=== PATIENT | male | born 1950 | race Caucasian/White ===

== ENCOUNTER 2019-10-30 15:15 | Emergency (ER) | payer OTHER, MEDICAID ==
[~2019-10-30] VITALS: Ht 167.6 cm; Wt 59.0 kg
[~2019-10-30 15:15] MED LIST: ACYCLOVIR400 MG ORAL; ASPIR-LOW81 MG ORAL; BACTRIM-DS1 EA ORAL; HYDROCODON-ACE1 EA18 PO; LORAZEPAM0.5 MG ORAL; METOPROLOL TART25 MG ORAL; NITROGLYCERIN0.4 MG SL; NORVIR100 MG ORAL; REYATAZ150 MG ORAL; VENLAFAXINE HCL25 MG ORAL
[2019-10-30 15:35] VITALS: BP 105/69
[2019-10-30] MEDS ORDERED: traMADol 50mg tab ORAL ONE (15:45)
--- NOTE | 2019-10-30 15:49 | Emergency Room Report ---
History of Present Illness General Chief Complaint: Back Pain-No Injury Source: Patient Present Illness HPI Patient is a 69-year-old male past medical history of HIV who presents to the ER status post fall. Patient states that he fell several days ago in his shower on soapy floor. He states that he hit his face but did not have loss of consciousness. He also states that he hit his right ribs and his buttocks. Patient complains of lower back pain and right-sided rib pain. He denies any headache. He denies any focal weakness. Patient states that he is able to ambulate. He states that he has not taken any medications for his pain. Allergies: Coded Allergies: ARIPIPRAZOLE (Verified Allergy, Unknown, 10/30/19) PROCHLORPERAZINE (Verified Allergy, Unknown, 03/29/10) COVID-19 Screening Contact w/high risk pt: No Recent Travel to affected area: No Experienced COVID-19 symptoms?: No COVID-19 Testing performed TECHNICAL SUPPORT REPRESENTATIVE: No Patient History Past Medical History: other - HIV Past Surgical History: none Social History: Denies: smoking, alcohol use, drug use Nursing Documentation-H Hx Cardiac Problems: Yes - HIV Hx Hypertension: Yes Hx Asthma: Yes Hx COPD: Yes Hx Diabetes: No Hx Cancer: No Hx Gastrointestinal Problems: No Hx Dialysis: No Hx Neurological Problems: No Hx Cerebrovascular Accident: No Hx Seizures: No Review of Systems All Other Systems: negative except mentioned in HPI Physical Exam Vital Signs Date Time Temp Pulse Resp B/P (MAP) Pulse Ox O2 Delivery O2 Flow Rate FiO2 10/30/19 15:21 98.6 65 19 105/69 (81) 95 Room Air Sp02 EP Interpretation: reviewed, normal General Appearance: no apparent distress, alert, GCS 15, non-toxic Head: normocephalic, atraumatic Eyes: left eye normal inspection, left eye PERRL ENT: other - R periorbital ecchymosis, healing abrasion to R nasal bridge Neck: full range of motion, supple/symm/no masses Respiratory: lungs clear, normal breath sounds, speaking full sentences, other - R lateral and posterior rib ttp, no guarding or rebound, no crepitus Cardiovascular #1: regular rate, rhythm, no edema Gastrointestinal: normal bowel sounds, non tender, soft, non-distended, no guarding, no rebound Rectal: deferred Genitourinary: no CVA tenderness Musculoskeletal: other - Lumbar ttp, no stepoffs, no saddle anesthesia Neurologic: alert, motor strength/tone normal, oriented x3, sensory intact, responsive, speech normal, other - normal gait Psychiatric: judgement/insight normal, memory normal, mood/affect normal, no suicidal/homicidal ideation Skin: no rash Lymphatic: no adenopathy Medical Decision Making Diagnostic Impression: Primary Impression: Fall ER Course Patient eloped prior to his CT results. Last Vital Signs Date Time Temp Pulse Resp B/P (MAP) Pulse Ox O2 Delivery O2 Flow Rate FiO2 10/30/19 15:21 98.6 65 19 105/69 (81) 95 Room Air Disposition: ELOPED Condition: Unknown Sarah Rizzo M.D. October 30, 2019 15:49
--- NOTE | 2019-10-30 16:07 | NUR ---
ED Nurse Note: Patient walked in to ED c/o lower back pain x 1 week. Stated that he fell 2 days ago. Pt also c/o of rib pain. Patient presented anxious, telling different stories about his fall, AAO x3, VSS at this time.
[2019-10-30 16:30] VITALS: BP 105/69
--- NOTE | 2019-10-30 16:30 | NUR ---
ELOPEMENT: Patient eloped. Pt left with all his belongings. ID band removed.
--- NOTE | 2019-10-30 16:48 | Diagnostic Imaging Report ---
EXAM: CT CT Head no Contrast INDICATION: Status post fall with head pain. TECHNIQUE: Axial images of the brain were obtained with subsequent sagittal and coronal reformats. All CT scans at this facility are performed using dose modulation techniques as appropriate to a performed exam including the following: automated exposure control with adjustment of the mA and/or kV according to patient size. COMPARISON STUDY: None. RADIATION DOSE: CTDIvol: 68.7 mGy DLP: 1393.1 mGy-cm Dose information generated by the CT scanner is available in PACS. FINDINGS: There is age related senescent changes with ventricular and sulcal prominence. White matter micro-ischemic changes noted. There is no acute large territory cortical infarct, hemorrhage, mass effect or shift. Ventricles and cisterns as well as brainstem and posterior fossa appear unremarkable. The sellar region is normal. Sinuses, mastoid air cells and bony calvarium appear intact. IMPRESSION: Age related senescent changes. No acute intracranial abnormality.
--- NOTE | 2019-10-30 17:02 | Diagnostic Imaging Report ---
EXAM: CT CT L Spine no Contrast CLINICAL HISTORY: Back pain status post fall. TECHNIQUE: Axial images obtained through the lumbar spine with subsequent sagittal and coronal reformat images. All CT scans at this facility are performed using dose modulation techniques as appropriate to a performed exam including the following: automated exposure control with adjustment of the mA and/or kV according to patient size. RADIATION DOSE: CTDIvol: 15.7 mGy DLP: 555.5 mGy-cm Dose information generated by the CT scanner is available in PACS. COMPARISON: None FINDINGS: There is diffuse spondylosis. Overall alignment is anatomic except for degenerative anterolisthesis of L5 on S1. There is old deformities of the T12 and L1 vertebral body noted. There is superior endplate depression of T12. There is also mild to moderate wedging deformity of L1. These appear old. No discrete acute fracture demonstrated. Degenerative disc space narrowing noted at multiple levels with vacuum disc phenomenon. There is also hypertrophic facet disease at L4-5 and L5-S1. No paraspinal soft tissue swelling or hematoma demonstrated. IMPRESSION: OLD SUPERIOR ENDPLATE DEPRESSION OF T12 AND WEDGING DEFORMITY OF L1. NO ACUTE FRACTURE OR TRAUMATIC MALALIGNMENT. DIFFUSE SPONDYLOSIS WITH DEGENERATIVE ANTEROLISTHESIS OF L5 ON S1.
--- NOTE | 2019-10-30 17:05 | Diagnostic Imaging Report ---
EXAM: CT CT Chest no Contrast CLINICAL HISTORY: Status post fall. Chest pain. TECHNIQUE: Axial images obtained through the chest without contrast. All CT scans at this facility are performed using dose modulation techniques as appropriate to a performed exam including the following: automated exposure control with adjustment of the mA and/or kV according to patient size. RADIATION DOSE: CTDIvol: 15.7 mGy DLP: 555.5 mGy-cm Dose information generated by the CT scanner is available in PACS. COMPARISON: None FINDINGS: Bilateral scattered emphysematous changes noted. Mild inflammatory changes in right upper lobe. There is a fatty Bochdalek hernia at the posterior left lung base. Adjacent atelectasis is noted. Minimal atelectasis also noted in the posterior right lung base. Cardiac and mediastinal structures are within normal limits. There is no pathologic size adenopathy. Old fracture deformity and secondary osteoarthritis of the right shoulder noted. Old right rib fracture noted. Limited images through the upper abdomen is unremarkable. IMPRESSION: NO EVIDENCE OF ACUTE TRAUMATIC INJURY OF THE CHEST. BILATERAL EMPHYSEMATOUS CHANGES. MILD INFLAMMATORY CHANGES RIGHT UPPER LOBE. 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 OLD FRACTURE DEFORMITY AND SECONDARY OSTEOARTHRITIS OF RIGHT SHOULDER. OLD RIGHT RIB FRACTURE.
--- NOTE | 2019-10-30 17:08 | Diagnostic Imaging Report ---
EXAM: CT CT Facial Bones no Contrast CLINICAL HISTORY: Status post fall with facial pain. TECHNIQUE: Axial images obtained through the face with subsequent sagittal and coronal reformat images. All CT scans at this facility are performed using dose modulation techniques as appropriate to a performed exam including the following: automated exposure control with adjustment of the mA and/or kV according to patient size. RADIATION DOSE: CTDIvol: 68.7 mGy DLP: 1393.1 mGy-cm Dose information generated by the CT scanner is available in PACS. COMPARISON: None FINDINGS: There is age indeterminate fracture of the nasal bone. The orbits appear unremarkable. The zygomatic arches are intact. The pterygoid plates show normal configuration. Paranasal sinuses are unremarkable. The TMJs are congruent. Soft tissue of the face appears unremarkable. IMPRESSION: AGE INDETERMINATE FRACTURE OF THE NASAL BONE. THERE IS NO SIGNIFICANT SURROUNDING SOFT TISSUE SWELLING SO THIS MAY BE AN OLD INJURY. NO OTHER MAXILLOFACIAL FRACTURES SEEN PRESENTLY.
== END 2019-10-30 16:30 | disposition left against medical advice (07) ==
LOC: EMR 15:45
DX: S00.31XA Abrasion of nose, initial encounter (principal); M54.5 Low back pain; I10 Essential (primary) hypertension; J44.9 Chronic obstructive pulmonary disease, unspecified; B20 Human immunodeficiency virus [HIV] disease; W18.2XXA Fall in (into) shower or empty bathtub, initial encounter; Y93.E1 Activity, personal bathing and showering; Y92.012 Bathroom of single-family (private) house as the place of occurrence of the external cause; Z88.8 Allergy status to other drugs, medicaments and biological substances; Z53.29 Procedure and treatment not carried out because of patient's decision for other reasons
CPT/HCPCS: 70450; 70486; 71250; 72131; 99284